=== PATIENT | female | born 1965 | race American Indian/Alaskan Native ===

== ENCOUNTER 2018-05-16 09:05 | Emergency (ER) | payer OTHER ==
[2018-05-16] MEDS ORDERED: MORPHINE IV ONE (09:33)
[2018-05-16] MEDS ORDERED: ZOFRAN IV ONE (09:33)
[2018-05-16] MEDS ORDERED: MOTRIN PO ONE (09:34)
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
[2018-05-16] MEDS ORDERED: NORMODYNE IV ONE (11:32)
[2018-05-16 13:00] VITALS: BP 183/105
== END 2018-05-16 13:16 | disposition home or self-care (01) ==
LOC: ED 09:05
DX: I16.0 Hypertensive urgency (principal); M54.2 Cervicalgia; M54.5 Low back pain; Z86.73 Personal history of transient ischemic attack (TIA), and cerebral infarction without residual deficits
CPT/HCPCS: 70450; 72100; 72125; 73030; 96374; 96375; 99285; J2270; J2405